=== PATIENT | male | born 1985 | race Caucasian/White ===

== ENCOUNTER 2024-02-12 20:57 | Emergency (ER) | payer OTHER, SELFPAY ==
[2024-02-12 21:00] VITALS: BP 135/98
[2024-02-12 21:57] VITALS: BMI 25.1
--- NOTE | 2024-02-12 22:00 | ED.GENMED ---
History of Present Illness
<SANDY Mcclellan - Last Filed: 02/13/24 04:19>
General
Chief Complaint: Back Pain
Source: patient
Time Seen by Provider: 02/12/24 22:00
Nursing documentation reviewed up to this point in time: agreed with
History of Present Illness
History of Present Illness:
Patient is a 38 year old male presenting to the ED with complaints of lower back pain x 3 weeks. The pain started while he was lifting weights. He was doing a leg press and felt a pop. There is a sharp back pain that is rated a 9/10 and radiates
down his right leg. The pain has been getting worse with time. He went to urgent care 3 weeks ago and they gave him Prednisone and a muscle relaxer which did not help his symptoms. He went again 1 week ago for another dose which did not help.
Yesterday he started getting a tingling sensation in his foot. Pain is worse with movement and better with rest. Something like this has never happened before. Patient denies any bruising changes in urination dysuria sob light headedness.
Patient has been taking Prednisone and a muscle relaxer for the past 3 weeks which have not helped symptoms. He admits to chronic alcohol use. He got 2 xrays of his back at both urgent care visits which came back negative.
Past History
<SANDY Mcclellan - Last Filed: 02/13/24 04:19>
Social History
Tobacco: Non-smoker
Alcohol: Chronic alcoholic
Drug: None
Personal:
Living: with family
Employment: Employed
Family History
Family History: Other (n/c)
Review of Systems
<SANDY Mcclellan - Last Filed: 02/13/24 04:19>
Review of Systems
Allergies reviewed?: Yes
Constitutional: Reports no symptoms
Respiratory: Reports no symptoms
Cardiac: Reports no symptoms
: Reports no symptoms
Musculoskeletal: Reports muscle pain and back pain
Neurological: Reports numbness (tingling in R foot )
Phy Exam
<BrandonSANDY Kaplan - Last Filed: 02/13/24 04:19>
General Physical Exam
General Presentation: mild distress
General age: appears stated age
General Habitus: normal
General Mental: alert
Cardiovascular Exam
Cardiovascular Exam: regular rate/rhythm, no edema, no gallop, no JVD and no murmur
Pulmonary Exam
Pulmonary Exam: lungs clear, no respiratory distress, no rales, chest non tender, no crackles, no rhonchi, no stridor, no wheezing and no cough
Sensory
Sensory Exam: intact (sensation intact in the R leg to light touch)
Musculoskeletal Exam
Musculoskeletal Exam: back pain (sharp back pain to palpation of lumbosacral junction), back tenderness and other (sharp pain down posterior R thigh, tingling sensation in R foot)
Course
<SANDY Mcclellan - Last Filed: 02/13/24 04:19>
Orders/Labs/Results
Orders:
Orders
02/12/24 22:16
CT Lumbar Spine W/o Iv Contras Urgent
Comment:
Reason For Exam: lower back pain radiating to leg
02/12/24 22:24
Urinalysis Reflex To Culture Urgent
Date Specimen was Collected: 02/12/24
Time Specimen was Collected: 22:22
Urine Microscopic Reflex Cult Urgent
02/12/24 22:38
Dexamethasone Pf [Decadron] 10 mg PO NOW STA
Famotidine [Pepcid] 40 mg PO NOW STA
Ketorolac [Toradol] 60 mg IM NOW STA
Abnormal Lab Results
02/12/24
22:24
Urine Ketones Trace A
(Negative)
Leukocyte Esterase Rfl Trace A
(Negative)
Urine Bacteria (Reflex) Few A
(Negative)
Vital Signs
Initial and Last Documented VS:
Initial Vital Signs
Temp Pulse Resp BP Pulse Ox
98.2 F 97 16 135/98 98
02/12/24 21:00 02/12/24 21:00 02/12/24 21:00 02/12/24 21:00 02/12/24 21:00
Last Documented Vital Signs
Temp Pulse Resp BP Pulse Ox
98.2 F 97 16 135/98 98
02/12/24 21:00 02/12/24 21:00 02/12/24 21:00 02/12/24 21:00 02/12/24 21:00
<Saulo Griffith, DO - Last Filed: 02/13/24 00:46>
Orders/Labs/Results
Orders:
Orders
02/12/24 22:16
CT Lumbar Spine W/o Iv Contras Urgent
Comment:
Reason For Exam: lower back pain radiating to leg
02/12/24 22:24
Urinalysis Reflex To Culture Urgent
Date Specimen was Collected: 02/12/24
Time Specimen was Collected: 22:22
Urine Microscopic Reflex Cult Urgent
02/12/24 22:38
Dexamethasone Pf [Decadron] 10 mg PO NOW STA
Famotidine [Pepcid] 40 mg PO NOW STA
Ketorolac [Toradol] 60 mg IM NOW STA
Abnormal Lab Results
02/12/24
22:24
Urine Ketones Trace A
(Negative)
Leukocyte Esterase Rfl Trace A
(Negative)
Urine Bacteria (Reflex) Few A
(Negative)
Vital Signs
Initial and Last Documented VS:
Initial Vital Signs
Temp Pulse Resp BP Pulse Ox
98.2 F 97 16 135/98 98
02/12/24 21:00 02/12/24 21:00 02/12/24 21:00 02/12/24 21:00 02/12/24 21:00
Last Documented Vital Signs
Temp Pulse Resp BP Pulse Ox
98.2 F 97 16 135/98 98
02/12/24 21:00 02/12/24 21:00 02/12/24 21:00 02/12/24 21:00 02/12/24 21:00
<SANDY Mcclellan - Last Filed: 02/13/24 04:19>
MDM/Problems Addressed
Differential Diagnosis Includes:
sciatica, disc herniation, hamstring strain
MDM/Problems Addressed:
Give ice for back, order urine and CT without contrast
<SANDY Mcclellan - Last Filed: 02/13/24 04:19>
*Critical Care Note
Total Time (30-74mins, 75-104mins- exclusive of procedures): Not Applicable
<Saulo Griffith DO - Last Filed: 02/13/24 00:46>
Update Note
Update Note:
CT lumbar spine without contrast
IMPRESSION:
Right L5-S1 subarticular disk protrusion measure approximately 10 mm in AP dimension causing spinal canal narrowing and likely compressing the traversing right S1 nerve root, better evaluated MRI if clinically indicated.
02/13/2024 0036 AM: Discussed CAT scan findings with the patient. At this point we discussed admitting him for pain control but he refused. He does wish to follow-up with orthopedics. I did give him a copy of his CAT scan findings. He does
understand the findings. We did discuss them at length. He will follow-up with orthopedics. He will continue to follow-up with the [facility]. I will prescribe him narcotic pain medication for breakthrough pain.
ED Attending Note
<SANDY Mcclellan - Last Filed: 02/13/24 04:19>
-
Portions of this chart may have been created with voice recognition software.� Occasional wrong word or��sound alike� substitutions may have occurred due to the inherent limitations of voice recognition software.
<Saulo Griffith, DO - Last Filed: 02/13/24 00:46>
ED Attending Note
Patient seen and examined by attending physician: Yes
I performed the substantive portion of visit, reviewed & personally made and approve the management plan that is documented in note by myself or ANISA.: Yes
ED Attending Note:
This a pleasant 38-year-old disabled who presents with lower back pain that has been present for the last 3 weeks. Patient states that he was lifting weights and felt a pop in his low back. He was seen by urgent care and had an x-ray. He
was given prednisone and a muscle relaxant which helped his symptoms slightly. He returned to the urgent care and again had minimal relief from the symptoms. He reports getting paresthesias in his foot beginning yesterday so he decided to come in
to the emergency department. He states that his symptoms are exacerbated by movement and relieved with rest. Patient denies bowel or bladder retention or incontinence. He denies perianal anesthesia. He is able to walk. [facility] He also has a virtual physical therapy scheduled for February 19. Patient denies fever, chills, nausea or vomiting. Patient is a former alcoholic but has been clean for 8 and half months. Patient has tried a TENS unit, a
pressure-point device, both of which have not worked. Patient was seen in conjunction with the PA student. I have reviewed and agree with the history and treatment plan presented. On my independent physical exam, patient is awake, alert, and
oriented x3, moderate acute distress. Heart is regular rate and rhythm. Lungs clear to auscultation bilaterally without wheezes rales or rhonchi present. Positive straight leg raising test on the right. Sensation intact.
Discharge Plan
Departure
Patient Disposition: Home (Routine Discharge)
Date of Disposition: 02/13/24
Time of Disposition: 00:37
Patient with high blood pressure during this ER visit?: Yes
Condition: Good
Discharge Problem:
Herniated intervertebral disc of lumbar spine
Instructions: Sciatica (DC), Degenerative Disc Disease ED
Prescriptions:
New
oxycodone-acetaminophen [Percocet] 5-325 mg tablet
1 tab PO Q6HPRN PRN (Reason: pain) Qty: 10 0RF
No Action
thiamine HCl (vitamin B1) 100 MG tablet
100 mg PO DAILY Qty: 60 0RF
pantoprazole [Protonix] 40 mg tablet,delayed release (DR/EC)
40 mg PO DAILY Qty: 14 0RF
ondansetron 4 mg tablet,disintegrating
4 mg PO QID PRN (Reason: nausea and vomiting) Qty: 20 0RF
Referrals:
[facility] [Provider Group]
Bobbi Hoyos MD [Family Provider] -
Activity Restrictions/Additional Instructions:
Your prescriptions were sent electronically to the 24-hour [facility] pharmacy that you specified
[facility] [place]
It was a pleasure meeting you and taking part in your care. We hope for your continued healing and wellness.
Please read discharge instructions in their entirety. However, they are for general education and may not describe your exact diagnosis at discharge. Information on your ER visit and medical conditions were discussed with you along with appropriate
follow up information...
If indicated, please take your medications as instructed and indicated on discharge paperwork.
Please schedule a follow up appointment as directed. Call to schedule an appointment
Please return to the emergency department with ANY change in, persisting, or worsening of symptoms. If any of your symptoms do not improve, or persist, or become more severe within 6-12 hours, please return to the emergency department for further
care.
Please return to the emergency department if you develop a headache, neck pain/stiffness, fever greater than 100.4F, chest pain, shortness of breath, persistent nausea, vomiting, slurred speech, difficulty walking, numbness/tingling, weakness, signs
of infection or any other symptoms that are worrisome to you.
If you have any questions or concerns please do not hesitate to call the Hospital at or E-mail me directly at [email or web address]
Interventions
Interventions:
*Risk Screen - Suicide Last Done: 02/12/24 21:00
*General Assessment Last Done: 02/12/24 21:57
*Neglect/Abuse Screening Last Done: 02/12/24 21:57
ED- Fall Risk Assessment Last Done: 02/12/24 21:57
*ED COVID-19 Vaccine History Last Done: 02/12/24 21:57
*Nursing Disposition Last Done: 02/13/24 00:57
ED-Musculoskeletal Assessment Last Done: 02/12/24 21:57
Discharge Date and Time
Discharge Date/Time: 02/13/24 01:04
Print Language: SERBIAN
[2024-02-12 22:33] LABS: Urine Albumin Negative (Neg - Trace); Urine Bilirubin Negative (Negative); Urine Character Clear (Clear); Urine Color Yellow; Urine Glucose Negative (Negative); Urine Ketone Trace (Negative); Urine Leukocyte Trace (Negative); Urine Nitrite Negative (Negative); Urine Occult Blood Negative (Negative); Urine Urobilinogen Negative (Neg - 1+)
[2024-02-12 22:39] LABS: Urine Bacteria Few (Negative); Urine Red Blood Cell 0-2 /HPF (0-2); Urine White Cell 0-2 /HPF (0-5)
[2024-02-12] MEDS: PEPCID 40 MG PO (22:53)
[2024-02-12] MEDS: DECADRON 10 MG PO (22:53)
[2024-02-12] MEDS: TORADOL 60 MG IM (22:54)
== END 2024-02-13 01:04 | disposition home or self-care (01) ==
LOC: EMR 20:57
PROVIDERS: EMERGENCY PHYSICIAN Student in an Organized Health Care Education/Training Program; FAMILY PHYSICIAN Internal Medicine
DX: M51.26 Other intervertebral disc displacement, lumbar region (principal); F10.21 Alcohol dependence, in remission
CPT/HCPCS: 99284; 96372; 72131; 81003; 81015

== ENCOUNTER 2024-08-03 22:42 | Inpatient (IN) | payer OTHER, SELFPAY ==
[2024-08-03] VITALS (8 sets, daily range): BP systolic 115–133; BP diastolic 85–104
[2024-08-03 19:27] LABS: % Basophils 0.8 % (0-2); % Eosinophils 0.2 % (0-6); % Immature Granulocytes 0.4 % (0-0.5); % Lymphocytes 39.2 % (20.5-51.1); % Monocytes 4.6 % (1.7-9.3); % Neutrophils 54.8 % (42.2-75.2); Absolute Basophils 0.1 10^3/uL (0-0.2); Absolute Monocytes 0.5 10^3/uL (0.1-0.6); Absolute Neutrophils 5.6 10^3/uL (1.4-6.5); Hematocrit 42.9 % (39.0-52.0); Hemoglobin 15.7 g/dL (13.0-18.0); Mean Corp Hgb Conc. 36.6 g/dL (33.0-37.0); Mean Corpuscular Hgb 33.3 pg (27.0-31.0); Mean Corpuscular Volume 91.1 fL (80.0-94.0); Mean Platelet Volume 9.7 fL (7.4-10.4); Nucleated Red Blood Cells % 0.2 % (-); Platelet Count 443 10^3/uL (130-400); Red Blood Cell Count 4.71 10^6/uL (4.70-6.10); Red Cell Dist. Width 14.2 % (11.5-14.5); White Blood Cell Count 10.2 10^3/uL (4.8-10.8)
[2024-08-03 19:37] LABS: ALT (SGPT) 73 U/L (0-50); AST (SGOT) 91 U/L (17-59); Albumin 4.4 g/dl (3.5-5.0); Alkaline Phosphatase 137 U/L (38-126); Blood Urea Nitrogen 18 mg/dl (9-20); Calcium 9.7 mg/dl (8.4-10.2); Carbon Dioxide 27 mmol/L (22-30); Chloride 93 mmol/L (98-107); Estimated Creatinine Clearance > 125 ml/min; Glucose 176 mg/dl (70-99); Sodium 138 mmol/L (135-145); Total Bilirubin 1.1 mg/dl (0.2-1.3); Total Protein 6.6 g/dl (6.3-8.2); eGFR > 60.00
[2024-08-03] MEDS: ATIVAN 1 MG IV (19:49)
[2024-08-03] MEDS: NSS 1000 IV (19:50)
[2024-08-03] MEDS: PROTONIX IV 80 MG IV (19:50)
[2024-08-03] MEDS: ZOFRAN 4 MG IV (19:50)
[2024-08-03] MEDS: MULTIVITAMIN 1011 ML IV (20:03)
[2024-08-03] MEDS: MULTIVITAMIN 1011 MG IV (20:03)
[2024-08-03 20:07] LABS: Alcohol 331 mg/dl; Lipase 258 U/L (23-300)
--- NOTE | 2024-08-03 20:55 | ED.GENMED ---
History of Present Illness
General
Chief Complaint: Abdominal Symptoms
Source: patient
Exam Limitations: none
Time Seen by Provider: 08/03/24 19:30
History of Present Illness
History of Present Illness:
39-year-old male with a history of alcohol use. Drank half a pint this morning. Episodes of nausea vomiting. Progressive over a month. Possibly some blood in his vomit. Also complaining of some epigastric pain. Not currently taking Tylenol.
Stopped a week ago.
Past History
Past History
ED Past Medical History: Other (Alcohol abuse/posttraumatic stress disorder)
ED Past Surgical History: Other (LASEK eye surgery)
Social History
Tobacco: Non-smoker
Alcohol: Chronic alcoholic
Drug: None
Personal:
Living: with family
Employment: Employed
Family History
Family History: Other (n/c)
Review of Systems
Review of Systems
All Other Systems: Not applicable
Constitutional: Denies fever
Respiratory: Reports no symptoms
Cardiac: Denies chest pain or syncope
Phy Exam
Physical Exam
Physical Exam:
GENERAL: Alert and oriented. Anxious. Jittery.
EYE: Orbits normal.
NECK: Supple, no significant adenopathy.
ENT: Pharynx without erythema
CARDIAC: Tachycardic and regular no murmur
Lungs: Mildly tachypneic and mild hyperventilation. Clear
ABDOMEN: Soft, mild epigastric tenderness no rebound or guarding no mass or hernia. Stool is brown but test trace positive
NEUROLOGICAL: Alert and oriented , grossly non-focal
SKIN: Warm and dry, no rash or lesion, no discoloration, skin intact.
MUSCULOSKELETAL: No edema,no deformity.Good color
PSYCH: Normal and appropriate interaction. Anxious. Jittery.
Course
Orders/Labs/Results
Orders:
Orders
08/03/24 19:04
EKG [Electrocardiogram (*1)] Urgent
Reason for Study: Tachycardia
08/03/24 19:05
EKG- Treatment ONCE
08/03/24 19:11
Alcohol Urgent
CMP [Comprehensive Metabolic Panel] Urgent
Complete Blood Count/With Diff Urgent
Lipase Urgent
Comment: ADD ON
08/03/24 19:39
Add On- LAB Urgent
Tests Added?: lipase
Electrocardiogram (*1) Stat
Reason for Study: Other
Other Reason for Exam: GI Bleed
Cardiac Monitoring- Treatment ONCE
EKG- Treatment ONCE
IV Insert/Care/Rem.- Treatment PRN
Lorazepam [Ativan] 1 mg IV NOW STA
Ondansetron Injectable [Zofran] 4 mg IV NOW STA
Pantoprazole [Protonix IV] 80 mg IV NOW STA
Pulse Ox/cont/shift [RESP] Stat
Quantity: 1
08/03/24 19:40
0.9% Sodium Chloride 1000 ml [Nss] 1,000 ml IV BOLUS
08/03/24 19:41
Add On- LAB Urgent
Tests Added?: alcohol
08/03/24 19:45
Type+Screen Urgent
08/03/24 20:00
0.9% Sodium Chloride 1000 ml [Nss] 1,000 ml Mvi, Adult [Multivitamin] 10 ml Thiamine Injection 100 mg IV Wide Open mls/hr
08/03/24 20:09
Crisis Consult Urgent
Reason for Consult: depression, ptsd
08/03/24 21:07
ABO2 Urgent
BBK Wristband Number:
Associate notified that ABO2 has been ordered: [id number]
Date: 08/03/24
Time: 20:09
Medical Collector ID: [id number]
Abnormal Lab Results
08/03/24
19:11
MCH 33.3 H pg
(27.0-31.0)
Plt Count 443 H 10^3/uL
(130-400)
Absolute Lymphs (auto) 4.0 H 10^3/uL
(1.2-3.4)
Chloride 93 L mmol/L
(98-107)
Glucose 176 H mg/dl
(70-99)
AST 91 H U/L
(17-59)
ALT 73 H U/L
(0-50)
Alkaline Phosphatase 137 H U/L
(38-126)
08/03/24 19:11
08/03/24 19:11
Vital Signs
Initial and Last Documented VS:
Initial Vital Signs
Temp Pulse Resp BP Pulse Ox
98.0 F 115 22 127/90 99
08/03/24 18:59 08/03/24 18:59 08/03/24 18:59 08/03/24 18:59 08/03/24 18:59
Last Documented Vital Signs
Temp Pulse Resp BP Pulse Ox
98.0 F 116 18 120/104 95
08/03/24 18:59 08/03/24 20:45 08/03/24 20:45 08/03/24 20:00 08/03/24 20:15
*Critical Care Note
Total Time (30-74mins, 75-104mins- exclusive of procedures): Not Applicable
Update Note
Update Note:
Patient appears slightly improved but remains tachycardic. With report of hematemesis. Trace positive stool, likely alcoholic gastritis and withdrawal. Admit for further care
ED Attending Note
-
Portions of this chart may have been created with voice recognition software.� Occasional wrong word or��sound alike� substitutions may have occurred due to the inherent limitations of voice recognition software.
Discharge Plan
Departure
Patient Disposition: Admit
Date of Disposition: 08/03/24
Time of Disposition: 20:55
Presentation/result/management discussed w/ accepting MD/DO: Hospitalist
Discharge Problem:
Alcohol gastritis/withdrawal
Referrals:
NONE,* [Family Provider] -
Interventions
Interventions:
*Risk Screen - Suicide Last Done: 08/03/24 18:59
*General Assessment Last Done: 08/03/24 18:59
*Neglect/Abuse Screening Last Done: 08/03/24 18:59
*ED- Fall Risk Assessment Last Done: 08/03/24 19:06
*ED COVID-19 Vaccine History Last Done: 08/03/24 19:06
OA-Dlmctg-Fievprndov Assessment Last Done: 08/03/24 19:39
Discharge Date and Time
Print Language: UKRAINIAN
--- NOTE | 2024-08-03 21:48 | HPS.HSE ---
Family Physician
-
Family Physician: * NONE
Chief Complaint
-
back pain
History of Present Illness
Patient is a 39-year-old male with past medical history of PTSD, depression, chronic back pain and ETOH dependency who presented to [facility] ED for evaluation of back pain and potential ETOH withdraw. Patient reports drinking 1/2 of a 5th
of Vodka today with a 'handful of Tylenol,' does not recall when last drink was and can not quantify the amount of Tylenol ingested. He reports he was 10 months sober before starting to drink again around 2023, following a back injury to
L5-S1. He states he has chronic back pain in that area as well as the right sciatic nerve. He reports being hospitalized at the [place] with alcohol withdraw for tremors, diaphoresis, vomiting and diarrhea. He denies hallucinations, or need for
intubation. He reports wanting to be sober again.
Medical History
Past Medical History
Past Medical History: Reports Other
Additional Past Medical History:
PTSD
depression
chronic back pain
ETOH dependency
Past Surgical History: Reports Other
Additional Past Surgical History:
Lasik bilateral eyes
Social History
Tobacco: Smoker (cigarettes and vapes, does not quantify )
Alcohol: Daily (today reports half of a 5th of vodka )
Drug: None
Personal:
Living: With Family
Employment: Disabled
Family History
Family History: Not pertinent
Allergies / Home Medications
Allergies reflects when Allergies were last updated in [employer].
Home Medications with original date entered in [employer]
Allergy/Medication List:
Allergies
Allergy/AdvReac Type Severity Reaction Status Date / Time
No Known Allergies Allergy Verified 08/03/24 19:07
Home Medications
acetaminophen 500 mg tablet 1,000 mg PO Q8H PRN pain 08/03/24
bupropion HCl 150 mg 24 hr tablet, extended release 150 mg PO DAILY 08/03/24
duloxetine 30 mg capsule,delayed release 60 mg PO HS 08/03/24
gabapentin 600 mg tablet 600 mg PO TID 08/03/24
hydroxyzine HCl 50 mg tablet 50 mg PO TID PRN anxiety 08/03/24
lidocaine 5 % topical patch 2 patch topical DAILY Pain 08/03/24
naloxone 8 mg/actuation nasal spray 1 spray intranasal Q3M PRN opioid overdose 08/03/24
nicotine 21 mg/24 hr daily transdermal patch 1 patch transdermal DAILY 08/03/24
oxycodone 5 mg tablet 10 mg PO Q6H PRN severe pain 08/03/24
polyethylene glycol 3350 17 gram oral powder packet (Miralax) 17 g PO BID PRN constipation 08/03/24
prazosin 1 mg capsule 3 mg PO HS 08/03/24
sennosides 8.6 mg tablet 8.6 mg PO BID 08/03/24
trazodone 100 mg tablet 100 mg PO HS Sleep 08/03/24
Review of Systems
-
History Source: Patient
Constitutional: Reports Sleep Disturbance
EENT: Reports No Symptoms
Respiratory: Reports No Symptoms
Cardiac: Reports No Symptoms
Abdomen/GI: Reports Nausea, Vomiting and Diarrhea
: Reports No Symptoms
Musculoskeletal: Reports Other (back pain )
Skin: Reports No Symptoms
Neurological: Reports No Symptoms
Endocrine: Reports No Symptoms
Hematologic/Lymphatic: Reports No Symptoms
Psych: Reports No Symptoms
Physical Exam
Vital Signs
Vital Signs
Temp Pulse Resp BP Pulse Ox
98.0 F 116 18 120/104 95
08/03/24 18:59 08/03/24 20:45 08/03/24 20:45 08/03/24 20:00 08/03/24 20:15
Physical Exam
General: Well Developed, Well Nourished and Chills
HEENT: NormoCephalic, Moist mucous membranes, Atraumatic, [place] Conjunctivae, Nose Appears Normal and Ears Appear Normal
Respiratory: Clear and Non Labored Respirations
Cardiac: S1/S2, Regular Rhythm and Tachycardia; No Murmur, Rub or Gallop
Breast: Deferred by me
GI: Soft, Non Tender, Non Distended and Normal Bowel Sounds; No Organomegaly
Rectal: Deferred by Provider
Genito-urinary: Deferred by me
Musculoskeletal: No Clubbing, No Cyanosis and No Edema
Skin: Warm and IV/Catheter Site; No Rash
Neuro: Awake, Alert, AO x 3 and Nonfocal/grossly intact
Psych: Calm
Laboratory Results
-
08/03/24 19:11
08/03/24 19:11
Laboratory Results
Total Bilirubin 1.1 mg/dl (0.2-1.3) 08/03/24 19:11
AST 91 U/L (17-59) H 08/03/24 19:11
ALT 73 U/L (0-50) H 08/03/24 19:11
Alkaline Phosphatase 137 U/L (38-126) H 08/03/24 19:11
Lipase 258 U/L (23-300) 08/03/24 19:11
Data Reviewed
-
Medical Tests (Nuc Med, Echo, EKG etc): Report Reviewed by me (EKG: SINUS TACHYCARDIA)
Lab Data: Labs Reviewed by me (AST 91, ALT 73, Alk phos 137, ETOH 331)
Impression/Plan
-
IMPRESSION/PLAN:
#Transaminitis likely 2/2 ETOH intoxication
#ETOH withdraw with high risk for progression
#Hx ETOH withdraw
AST 91, ALT 73, Alk phos 137, ETOH 331
acetaminophen level: pending
reports drink 1/2 of a 5th of vodka today
reports previous withdraw with hospitalization
reports ingesting handful of Tylenol
- Admit to IMU
- MSAS protocol
- supportive care
#ETOH gastritis
- T & S
- IV Protonix daily
- monitor H/H
#PTSD
#depression
- continue bupropion, duloxetine, hydroxyzine, prazosin and trazodone
#chronic back pain
- continue gabapentin, lidocaine patch and oxycodone
Code status: full code
DVT prophylaxis: SCDs
--- NOTE | 2024-08-03 21:59 | W.PN.UPDATE ---
Update Note
Progress Note Update
This note serves as an addendum to the H&P by automotive generator repairer ANISA
Deneen Tate
HPI
39M HX ETOH use disorder, HX PTSD sen at ER;
- report half a pint of ETOH
- had nausea vomiting - possibly some blood in his vomit
- some epigastric pain.
- Not currently taking Tylenol. Stopped a week ago.
PHX: see above
Reviewed VS:
VS
08/03/24
18:59 08/03/24
19:01 08/03/24
19:16
Temp 98.0 F
Pulse 115 120
Resp Rate 22
Blood pressure 127/90 127/90
SaO2 99
Oxygen Mode of Delivery Room air
PE
Gen: anxious , Jittery
HEENT:
Neck:
Lungs: tachypneic and mild hyperventilation.
Cor: Tachycardic
Abdomen: soft
ALUMINUM POURER: see below
MS: no edema
Psych: interactive appropriately
CIWA score
N/V - mild - 2
Visible Tremors - 2
Paroxysmal l sweats - 0
Anxiety; 2 for moderate
Agitation - 0
tactile Hallucination ; 0
Auditory Hallucination - 0
Visual Hallucination- 0
COSTA - 0
ORIENTATION AND CLOUDING OF SENSORIUM: 0
CIWA 6 - very mild WD but ETOH level still 331
08/03/24
19:11
WBC 10.2
Hgb 15.7
Creatinine 0.7
eGFR > 60.00
Glucose 176 H
AST 91 H
ALT 73 H
Alkaline Phosphatase 137 H
Lipase 258
Alcohol, Quantitative 331
EKG
SINUS TACHYCARDIA
OTHERWISE NORMAL ECG
NO PREVIOUS ECGS AVAILABLE
ASSESSMENT & PLAN
Acute ETOH intoxication: ETOH 331 s/p a fifth Vodka sometime in the morning
Acute ETOH WDS with hi risk for progression
Current CIWA score 6 but ETOH level 33
HX ETOH WDS
- Start ETOH WD protocol moderate BZD dose
- IVF
- Psych consult
ETOH Gastritis
- T & S
- IV PPI daily
- Trend Hgb
Transaminitis suspect - Acute ETOH hepatitis
- check acetaminophen level
- Stop ETOH
- trend LFTs in AM
HX PTST/ depression
- c/w [employer] Bupropion, Duloxetine HS, trazodone HS Gabapentin , Oxycodone PRN
DVT Px: SCD
Full code
IMU
[2024-08-03 23:04] LABS: Acetaminophen < 10 ug/ml (10-30)
[2024-08-04] VITALS (13 sets, daily range): BP systolic 119–145; BP diastolic 72–99; BMI 26.1
[2024-08-04] MEDS: NSS 1000 IV ×3 (00:07→20:08)
[2024-08-04] MEDS: ZOFRAN 4 MG IV ×2 (00:11→06:18)
[2024-08-04] MEDS: THIAMINE INJECTION 200 MG IV ×4 (00:11→23:14)
[2024-08-04] MEDS: ATIVAN 1 MG PO ×3 (00:20→22:19)
[2024-08-04] MEDS: ROXICODONE 10 MG PO (00:34)
[2024-08-04 00:40] LABS: INR 1.15
[2024-08-04 00:41] LABS: APTT 26.6 Sec (23.4-35.0)
[2024-08-04 00:46] LABS: Alcohol 223 mg/dl; GGTP 716 U/L (15-73); Magnesium 1.6 mg/dl (1.6-2.3); Phosphorus 3.7 mg/dl (2.5-4.5)
--- NOTE | 2024-08-04 00:47 | PTCARENOTE ---
Rec'd pt from ED RN. Pt AAOx3, c/o feeling lousy. C/o severe 10/10 back pain, nausea without vomiting. HR elevated. MSAS as documented. Medication provided per JUL. Pt oriented to call gibbs and safety measures. Care ongoing.
[2024-08-04 00:52] LABS: B-Hydroxybutyrate 0.09 mmol/L (0.02-0.27)
[2024-08-04] MEDS: NSS (PRESERVATIVE FREE) 0.5 ML IV (02:10)
[2024-08-04] MEDS: ATIVAN 1 MG IV ×2 (02:10→14:49)
--- NOTE | 2024-08-04 04:45 | PTCARENOTE ---
Pt desats as low as 70% while sleeping. States hx of sleep apnea. Reports wearing a mask HS at baseline, but states he 'pulls it off throughout the night'. 2L O2 placed.
--- NOTE | 2024-08-04 04:49 | DOWNTIME ---
There was a [employer] Downtime on 08/04/2024 from 0100 to 08/05/2023 at 0420 . Downtime documentation of patient's care, including medication administrations, has been reconciled in the electronic record per guidelines. Refer to the
patient's paper chart under the miscellaneous tab to see printed paper medication records and downtime forms.
[2024-08-04] MEDS: ATIVAN 2 MG IV (07:05)
[2024-08-04] MEDS: NICODERM TRANSDERMAL 21 MG TRANSDERM (07:12)
--- NOTE | 2024-08-04 07:47 | PTCARENOTE ---
pts MSAS 12 at change of shift. see worklist. 2 mg ativan given
--- NOTE | 2024-08-04 08:17 | W.PN.HOSP.TC ---
Today's Communication/Plan
-
MSAS
Assessment / Plan
Assessment / Plan
Mr. Augustin Loredo is a 39 yo man with hx PTSD, depression, chronic pain (sciatica) and alcohol use presents to the ER with lower back pain and symptoms of withdrawal.
Alcohol Abuse Disorder
Alcohol Withdrawal
-monitor on telemetry
-IVF
-thiamine/folate
-MSAS
Reported use of excessive tylenol
-tylenol level < 10
Transaminitis
-normal T. Bili and INR
-2/2 alcohol us
Gastritis
-IV PPI daily
PTSD
Depression
- c/w PATIENT ACCESS Bupropion, Duloxetine HS, trazodone HS
Chronic Pain
Sciatica
-Gabapentin , Oxycodone PRN
DVT PPx SCD
Anticipated Discharge: 24 - 48 hours
Subjective/Interval History
-
Date of Service: August 04, 2024
seen post receiving 2mg Ativan
was more tremulous earlier
currently patient sedated, states he has lower back pain
Objective Data
-
Labs:
Laboratory Results
08/04/24
00:25
PT 15.0 H
INR 1.15
APTT 26.6
Vital Signs:
Vital Signs
Temp Pulse Resp BP Pulse Ox
98.4 F 104 20 119/72 94
08/04/24 06:36 08/04/24 06:00 08/04/24 06:00 08/04/24 06:00 08/04/24 06:00
I&O
08/03/24 08/04/24 08/05/24
06:59 06:59 06:59
Intake Total 600 / 600
Balance 600 / 600
Review of Systems
-
History Source: Patient
All other systems: Reviewed and negative
Physical Exam
-
General: Other (disheveled appearing)
HEENT: PERRLA
Respiratory: Clear to Auscultation; Negative Wheezes
Cardiac: Regular Rhythm and S1/S2
GI: Soft and Nontender
Musculoskeletal: No Edema
Skin: Warm and Dry; Negative Rash
Neuro: Awake and Alert
Psych: Calm
Data Reviewed
-
Diagnostic Radiology: Report Reviewed by me
Labs: Labs Reviewed by me
[2024-08-04] MEDS: NEURONTIN 600 MG PO (08:29)
[2024-08-04] MEDS: WELLBUTRIN XL (24 hour extended release) 150 MG PO (08:29)
[2024-08-04] MEDS: PROTONIX IV 40 MG IV ×3 (08:30→20:10)
[2024-08-04] MEDS: FOLVITE 1 MG PO (08:31)
[2024-08-04] MEDS: LIDOCAINE 4% PATCH 2 PATCH TOPICAL (08:32)
[2024-08-04] MEDS: NSS (PRESERVATIVE FREE) 10 ML IV ×2 (08:32→20:10)
[2024-08-04] MEDS: SENOKOT PO ×2 (08:37→20:59)
--- NOTE | 2024-08-04 11:26 | W.PN.UPDATE ---
Update Note
Progress Note Update
I spoke to patient's psychiatrist, Dr. Najera, who let me know that at discharge from last admission (at [facility] from 07/12-07/23) patient was prescribed Duloxetine 60 BID and Gabapentin 1200 TID.
Will increase Duloxetine back to BID dosing; start with Gabapentin 900 TID for now
[2024-08-04 13:34] LABS: INR 1.05; PT 14.2 Sec (11.4-14.6)
[2024-08-04 13:40] LABS: ALT (SGPT) 61 U/L (0-50); AST (SGOT) 77 U/L (17-59); Albumin 3.5 g/dl (3.5-5.0); Alkaline Phosphatase 110 U/L (38-126); Blood Urea Nitrogen 17 mg/dl (9-20); Calcium 8.4 mg/dl (8.4-10.2); Carbon Dioxide 25 mmol/L (22-30); Chloride 98 mmol/L (98-107); Estimated Creatinine Clearance > 125 ml/min; Glucose 110 mg/dl (70-99); Potassium 3.9 mmol/L (3.5-5.1); Sodium 132 mmol/L (135-145); Total Bilirubin 1.7 mg/dl (0.2-1.3); Total Protein 5.7 g/dl (6.3-8.2); eGFR > 60.00
[2024-08-04] MEDS: NEURONTIN 900 MG PO ×2 (15:33→21:00)
--- NOTE | 2024-08-04 15:41 | CM ---
CM met with pt bedside
Pt is a and currently receiving disability
Has VA insurance
He is independent with his ADLs, no DMEs
He has a cpap at home which he doesn't utilize
Pt receives all his medical care at the OR
PCP- name unknown, [facility] blue team
Rx- [facility]
CM consulted for D/A
Pt in agreement with DOLLY referral
Referral made to Rom/DOLLY
He will complete bedside visit tomorrow
Update to spouse per pt request
Pt has been to detox/inpt tx 7x
[facility] for [facility]
Discharge Disposition- inpt D/A
[2024-08-04] MEDS: CYMBALTA DELAYED RELEASE 60 MG PO (20:58)
[2024-08-04] MEDS: MINIPRESS 3 MG PO (21:00)
[2024-08-04] MEDS: DESYREL 100 MG PO (21:00)
[2024-08-05] VITALS (12 sets, daily range): BP systolic 122–140; BP diastolic 69–99; PULSE 116
--- NOTE | 2024-08-05 02:33 | PTCARENOTE ---
Pt oriented, cooperative. C/o loose stools with urgency, refused scheduled senna. MSAS as documented, see MAR. 2L O2 in place, VSS. Call gibbs within reach.
[2024-08-05 05:14] LABS: ALT (SGPT) 52 U/L (0-50); AST (SGOT) 76 U/L (17-59); Albumin 2.9 g/dl (3.5-5.0); Alkaline Phosphatase 104 U/L (38-126); Blood Urea Nitrogen 9 mg/dl (9-20); Calcium 8.5 mg/dl (8.4-10.2); Carbon Dioxide 25 mmol/L (22-30); Chloride 103 mmol/L (98-107); Estimated Creatinine Clearance > 125 ml/min; Glucose 116 mg/dl (70-99); Potassium 3.3 mmol/L (3.5-5.1); Sodium 134 mmol/L (135-145); Total Bilirubin 1.3 mg/dl (0.2-1.3); eGFR > 60.00
[2024-08-05 05:17] LABS: INR 1.03
[2024-08-05 05:53] LABS: Hematocrit 29.1 % (39.0-52.0); Hemoglobin 10.8 g/dL (13.0-18.0); Mean Corp Hgb Conc. 37.1 g/dL (33.0-37.0); Mean Corpuscular Hgb 34.7 pg (27.0-31.0); Mean Corpuscular Volume 93.6 fL (80.0-94.0); Mean Platelet Volume 10.2 fL (7.4-10.4); Platelet Count 186 10^3/uL (130-400); Red Blood Cell Count 3.11 10^6/uL (4.70-6.10); White Blood Cell Count 5.6 10^3/uL (4.8-10.8)
[2024-08-05] MEDS: ROXICODONE 10 MG PO ×3 (06:17→19:54)
[2024-08-05 06:23] LABS: Hemoglobin 10.6 g/dL (13.0-18.0); Mean Corp Hgb Conc. 36.6 g/dL (33.0-37.0); Mean Corpuscular Hgb 34.6 pg (27.0-31.0); Mean Corpuscular Volume 94.8 fL (80.0-94.0); Mean Platelet Volume 10.1 fL (7.4-10.4); Platelet Count 173 10^3/uL (130-400); Red Blood Cell Count 3.06 10^6/uL (4.70-6.10); Red Cell Dist. Width 14.1 % (11.5-14.5); White Blood Cell Count 5.4 10^3/uL (4.8-10.8)
--- NOTE | 2024-08-05 07:08 | W.PN.UPDATE ---
Update Note
Progress Note Update
AM labs: Hgb 10.8, previously 15.7. Repeated AM labs, Hgb 10.6.�
Vital signs stable: BP 130/70, HR 115, Resp 15, 95% on room air, Temp 98.2.
Patient examined, denies any pain: abdomen soft, distended (Pt states this is his normal abdomen), no signs of bruising t/o abdomen or t/o back. Patient denies any bleeding.��Ordered hemetest stools, serial H&H Q8H.�
Consider GI consult.
[2024-08-05 08:07] LABS: Iron 214 ug/dl (49-181)
[2024-08-05 08:16] LABS: Percent Saturation 90 % (20-50); Total Iron Binding Capacity 237 ug/dl (261-462)
--- NOTE | 2024-08-05 08:24 | W.PN.HOSP.TC ---
Today's Communication/Plan
-
see plan
Assessment / Plan
Assessment / Plan
Mr. Augustin Loredo is a 39 yo man with hx PTSD, depression, chronic pain (sciatica) and alcohol use presents to the ER with lower back pain and symptoms of withdrawal. [facility].
Patient is offered spinal surgery but because of pain he continues to drink. He cannot undergo surgery until a period of sobriety.
Alcohol Abuse Disorder
Alcohol Withdrawal
-monitor on telemetry
-OK to stop IVF
-thiamine/folate
-MSAS
-improving
L5 S1 disc Herniation
Sciatia
-Gabapentin 900 TID
-trial of Baclofen
-Lidocaine patch
-oxycodone PRN
-consult PT and Physiatry
Reported use of excessive tylenol pre last admission
-tylenol level < 10
Transaminitis
-normal T. Bili and INR
-2/2 alcohol use
Gastritis
-IV PPI daily
PTSD
Depression
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
-patient's psychiatrist aware of admission
DVT PPx SCD given drop in Hg
FULL CODE
51 minutes spent on patient care
Anticipated Discharge: 24 - 48 hours
Subjective/Interval History
-
Date of Service: August 05, 2024
feeling better today
hungry and wants to eat
no black or bloody stools
Objective Data
-
Labs:
Laboratory Results
08/05/24 08/05/24 08/05/24
04:41 06:15 12:00
WBC 5.6 5.4
Hgb 10.8 L D 10.6 L Pending
Hct 29.1 L 29.0 L Pending
Plt Count 186 D 173
PT 14.0
INR 1.03
Sodium 134 L
Potassium 3.3 L
Chloride 103
Carbon Dioxide 25
BUN 9
Creatinine 0.6 L
Glucose 116 H
Calcium 8.5
Total Bilirubin 1.3
AST 76 H
ALT 52 H
Alkaline Phosphatase 104
08/05/24
20:00
WBC
Hgb Pending
Hct Pending
Plt Count
PT
INR
Sodium
Potassium
Chloride
Carbon Dioxide
BUN
Creatinine
Glucose
Calcium
Total Bilirubin
AST
ALT
Alkaline Phosphatase
Vital Signs:
Vital Signs
Temp Pulse Resp BP Pulse Ox
98.2 F 115 15 130/70 95
08/05/24 04:47 08/05/24 06:00 08/05/24 06:00 08/05/24 06:00 08/05/24 06:00
I&O
08/04/24 08/05/24 08/06/24
06:59 06:59 06:59
Intake Total 600 / 600 1340 / 1340
Balance 600 / 600 1340 / 1340
Review of Systems
-
History Source: Patient
All other systems: Reviewed and negative
Physical Exam
-
General: No Apparent Distress
HEENT: PERRLA
Respiratory: Clear to Auscultation; Negative Wheezes
Cardiac: Regular Rhythm and S1/S2
GI: Soft and Nontender
Musculoskeletal: No Edema
Skin: Warm and Dry; Negative Rash
Neuro: Awake, Alert and AO x 3
Psych: Calm
Data Reviewed
-
Diagnostic Radiology: Report Reviewed by me
Labs: Labs Reviewed by me
[2024-08-05] MEDS: NSS IV (09:43)
[2024-08-05] MEDS: NSS (PRESERVATIVE FREE) 10 ML IV ×2 (09:44→19:56)
[2024-08-05] MEDS: THIAMINE INJECTION 200 MG IV ×3 (09:44→23:51)
[2024-08-05] MEDS: LIORESAL 10 MG PO ×3 (09:44→22:19)
[2024-08-05] MEDS: NEURONTIN 900 MG PO ×3 (09:44→22:18)
[2024-08-05] MEDS: PROTONIX IV 40 MG IV ×2 (09:44→19:56)
[2024-08-05] MEDS: SENOKOT 8.6 MG PO ×2 (09:45→19:55)
[2024-08-05] MEDS: CYMBALTA DELAYED RELEASE 60 MG PO ×2 (09:45→19:55)
[2024-08-05] MEDS: WELLBUTRIN XL (24 hour extended release) 150 MG PO (09:45)
[2024-08-05] MEDS: FOLVITE 1 MG PO (09:45)
[2024-08-05] MEDS: NICODERM TRANSDERMAL 21 MG TRANSDERM (09:46)
[2024-08-05] MEDS: LIDOCAINE 4% PATCH TOPICAL (11:14)
--- NOTE | 2024-08-05 11:39 | CON.MD ---
Consultation - Medical
-
Referring Provider:�Dr. Alisa Charles
Chief Complaint:�Low back pain
�
History of Present Illness:�39-year-old male with PMH (as below) presented to [facility] on 08/03/2024 with back pain and potential alcohol withdrawal. He has a history of alcohol dependency but was sober for 10 months prior to a back
injury with an L5-S1 injury around Labor Day with right sciatic nerve pain. He has been admitted to the [facility] with alcohol withdrawal before. Currently being treated for alcohol withdrawal. Found to have transaminitis thought secondary to
alcohol intoxication. Also with alcohol gastritis placed on Protonix.
�
Past Medical History:�PTSD, depression, chronic back pain, alcohol dependency
Procedure History:�Bilateral eye LASEK surgery
Family History:�None pertinent
�
Social History:�
Functional Level Premorbidly:�Independent with all activities�
Functional Level Currently:�Independent for bed mobility and transfers. Ambulating 40 feet x 1 with no device and supervision.
�
Tobacco:�Cigarettes and vapes
Alcohol:�Daily half of 1/5 of vodka
Drug use:�Denies�
�
Lives with:�Spouse
24-hour assistance available:�No
Number of floors:�2 split-level
# steps to enter:�1
# steps to second floor: 4�5 steps up and down
Potential First floor set up:�Yes
Driving:�
Occupation:�
�
�
Allergies:�
Allergy/AdvReac Type Severity Reaction Status Date / Time
No Known Allergies Allergy Verified 08/03/24 19:07
�
Review of Systems:�
Constitutional: (x) abNormal _fatigue, poor sleep with pain
Eye: (x) Normal _
Ear/Nose/Throat: (x) Normal _
Respiratory: (x) Normal _
Cardiovascular: (x) Normal _
Gastrointestinal: (x) Normal _
Genitourinary: (x) Normal _
Musculoskeletal: (x) abNormal _back pain radiating down the right leg, slipped disc in back pressing on the nerve requiring surgery
Integumentary: (x) Normal _
Neurologic: (x) abNormal _numbness and tingling down right leg, right leg numb. Weakness right leg
Psychiatric: (x) abNormal _frustrated by. Continuous pain and need to wait so long for surgery to help relieve the pain.
Endocrine: (x) Normal _
Hematologic/Lymphatic: (x) Normal _
Allergic/Immunologic: (x) Normal _
�
Medications:�
Active Current Visit Medication List
Category Date Time Status
0.9% Sodium Chloride [Nss (Preservative Free)] Med 08/04/24 20:00 Active
10 ml IV BID
0.9% Sodium Chloride [Nss (Preservative Free)] Med 08/03/24 23:50 Active
See Protocol IV PRN PRN
Baclofen [Lioresal] Med 08/05/24 14:03 Active
10 mg PO TID PRN
Bupropion(24Hr)Extended Releas [WELLBUTRIN XL (24 hour Med 08/04/24 08:00 Active
extended release)]
150 mg PO DAILY
Duloxetine Delayed Release [Cymbalta Delayed Release] Med 08/04/24 20:00 Active
60 mg PO BID
FOLic ACID [Folvite] Med 08/04/24 08:00 Active
1 mg PO DAILY
FOLic ACID [Folvite] 1 mg Med 08/03/24 23:50 Active
0.9% Sodium Chloride 50 ml [Nss] 50 ml
IV DAILYPRN
Flush (0.9% Sodium Chloride) [Flush (Nss)] Med 08/03/24 23:00 Active
See Dose Instructions IV PER PROTOCOL
Gabapentin [Neurontin] Med 08/04/24 11:24 Active
900 mg PO TID
HydrOXYZINE [Atarax] Med 08/03/24 23:50 Active
50 mg PO TID PRN
Lidocaine [Lidocaine 4% Patch] Med 08/04/24 08:00 Active
2 patch TOPICAL DAILY
Lorazepam [Ativan] Med 08/03/24 23:50 Active
1 mg IV Q1HPRN PRN
Lorazepam [Ativan] Med 08/03/24 23:50 Active
1 mg PO Q2HPRN PRN
Lorazepam [Ativan] Med 08/03/24 23:50 Active
2 mg IV Q1HPRN PRN
Nicotine [Nicoderm Transdermal] Med 08/04/24 08:00 Active
21 mg TRANSDERM DAILY
Ondansetron Injectable [Zofran] Med 08/03/24 23:50 Active
4 mg IV Q6HPRN PRN
Oxycodone [Roxicodone] Med 08/03/24 23:50 Active
10 mg PO Q6H PRN
Pantoprazole [Protonix IV] Med 08/04/24 20:00 Active
40 mg IV BID
Polyethylene Glycol Powder [Miralax] Med 08/03/24 23:50 Active
17 grams PO BID PRN
Prazosin HCl [Minipress] Med 08/04/24 22:00 Active
3 mg PO HS
Remove Patch [Remove Lidocaine Patch] Med 08/04/24 20:00 Active
2 patch REMOVE DAILY@1999
Sennosides [Senokot] Med 08/04/24 08:00 Active
8.6 mg PO BID
Thiamine HCl [Vitamin B1] Med 08/07/24 08:00 Active
100 mg PO BID
Thiamine Injection Med 08/04/24 00:00 Active
200 mg IV Q8
Trazodone [Desyrel] Med 08/04/24 22:00 Active
100 mg PO HS
�
Vitals:�
Temp Pulse Resp BP Pulse Ox
97.6 F 102 19 124/92 94
08/05/24 20:41 08/05/24 22:19 08/05/24 18:12 08/05/24 22:19 08/05/24 13:55
Height 5 ft 10 in
Actual Weight 82.6 kg
Body Mass Index (BMI) 26.1
�
Physical Exam:�
General Appearance/Observation: Well-developed, well-nourished male lying in bed mildly uncomfortable.�
Pain/Comfort Assessment: Low back to the right leg, mostly tingling pain
Mood/Affect: Somewhat flat�
Integumentary/Operative Site:�
�� Pressure Ulcer Evaluation: absent over heels.�
�
Eyes: Conjunctiva/Lids: normal���� Pupils: pupils equal round and reactive to light and Accommodation�
Ears/Nose/Throat: oral mucosa moist,� throat clear.������������ Lips/Teeth/Gums: normal�
Neck: No muscle spasm or tenderness�
Cardiovascular: Heart: regular, no murmur�
Pulses: dorsalis pedis 2+ bilaterally�
Respiratory: Respiratory Effort/Chest Expansion: normal������� Auscultation: Clear to auscultation bilaterally�
Gastrointestinal: abdomen not tender, no distension, normal abdominal bowel sounds
Genitourinary: No Sepulveda�
Rectal Exam: Deferred�
Extremities:�Edema: None�Cyanosis: None�Trophic�changes: None
�
Neurology Exam:
Orientation: Alert, Oriented to self, Time, Place�
Memory: Intact immediately and at 3 minutes�
Repetition: Intact
Comprehension: Intact
Two step command: Intact
Naming: Intact
Cranial Nerves:
�� CNII:�Pupillary light reflex: Intact����Visual Field: Intact
�� CN III, IV, : Extraocular muscles: Intact�
�� CN V:�Facial Sensation�at�Forehead: Intact,�Maxilla: Intact,�Mandible: Intact
�� CN VII:�Facial movement: Symmetric
�� CN VIII:�Hearing: Normal
�� CN IX/X:�Speech & swallow: Normal,�Position of Uvula: Midline
�� CN XI:�Shoulder shrug: Symmetric
�� CN XII:�Tongue protrusion: Midline
Sensory:
�� Light touch: Intact in bilateral upper and lower extremities
�
Reflexes:
�� Biceps: 2+ bilaterally
�� Brachioradialis: 2+ bilaterally
�� Triceps: 2+ bilaterally
�� Patellar: 2+ bilaterally
�� Achilles: 2+ bilaterally
�� Babinski: Down going bilaterally
�� Clonus: None
�� Bradley: Negative bilaterally�
Cerebellar: Dysmetria/Ataxia: None�
Musculoskeletal: Motor: (Manual muscle scale 0-5)�
Muscle SA EF WE EE FF FA HF KE DF EHL PF
Right� 5 5 5 5 5 5 3 3 3 3 3
Left 5 5 5 5 5 5 5 5 5 5 5
�
Tone: Normal in all extremities�
Range of Motion: Passively within normal limits in all extremities�
�
Lab Results
Laboratory Data
08/05/24 20:00
08/05/24 04:41
PT 14.0 Sec (11.4-14.6) 08/05/24 04:41
INR 1.03 08/05/24 04:41
APTT 26.6 Sec (23.4-35.0) 08/04/24 00:25
Total Bilirubin 1.3 mg/dl (0.2-1.3) 08/05/24 04:41
GGT 716 U/L (15-73) H 08/04/24 00:25
AST 76 U/L (17-59) H 08/05/24 04:41
ALT 52 U/L (0-50) H 08/05/24 04:41
Alkaline Phosphatase 104 U/L (38-126) 08/05/24 04:41
Total Protein 5.0 g/dl (6.3-8.2) L 08/05/24 04:41
Albumin 2.9 g/dl (3.5-5.0) L 08/05/24 04:41
�
Diagnostic Results:�as per HPI�
�
Assessment
39-year-old male with past medical history of PTS D, depression and alcohol dependency with 6-month history of back pain [facility] to [facility]ging disc impinging upon the nerve but needs to be alcohol free for 2 months
before surgery can happen presents with worsening pain and alcohol withdrawal.
�
Plan�
PM&R�PT/OT to increase independence with ADLs, improve balance, coordination, endurance, strength, mobility, community reintegration, decreased burden of care on others and family education.�
Reported history of right disc extrusion at L5-S1 causing severe narrowing of the right lateral recess: Reports plan for surgical intervention at the [place] but must be off of alcohol for 2 months before that can happen. He tried 2 epidurals without
benefit. He has taken up to 1200 mg of gabapentin currently at 900 mg 3 times daily. Could consider 1200 mg 3 times daily again, he had reportedly been on that at the [facility] per his psychiatrist.
Has reproducible muscle spasm in the right buttocks and hip: Suggest heat on a routine basis, massage, just started on baclofen 10 mg 4 times a day. Would suggest decreasing to 3 times a day with liver concerns with alcohol use. Monitor for
sedation. Titrate as able. Physical therapy. Kareem-hickey like cream to to be placed over right buttocks and hip avoiding perianal and inguinal areas.
-Consider spine consult here to see if they would do the procedure sooner given patient's significant level of pain
Anemia: Hemoglobin dropped from 15.7-10.8 and then 10.6. Hemoglobin being monitored closely.
FEN:
-Hyponatremia and hypokalemia being addressed
PTSD/depression: His home psychiatrist was already consulted.� Monitor mood, bupropion, duloxetine, hydroxyzine, prazosin for PTSD, trazodone for sleep.�
Skin: monitor for pressure sores/rashes/lesions.�
Chronic back pain: Takes oxycodone, gabapentin, lidocaine patch. Started on baclofen.�
Bowel: Colace and Senna, PRN bisacodyl.�
Bladder: Time void, PVRs, PRN straight cath.�
Alcohol Abuse: Alcohol cessation education, offering of outpatient alcohol abuse program�
Tobacco Abuse: Smoking cessation counseling. Need to find out why smoking whether it is nicotine withdrawal, habit, or oral fixation.� Has nicotine patch
GI Prophylaxis: Pantoprazole�
DVT Prophylaxis: Mechanical.�
Pulmonary: Incentive spirometry�
Safety: Continue to reinforce assistance with all transfers.�
Code Status:� Full code
Dispo�(date/plan/equipment needs): Home with family care.� Social history reviewed.�
Functional and Medical Goals:�Modified Independent with ADL�s, ambulation, transfers�
Discharge Destination:�Home with home care versus outpatient therapy.
A total of 60 minutes were spent with the patient preparing for the evaluation, obtaining history, performing examination and evaluation, counseling, data review, case management, care coordination, order filler, and EMR documentation. Reviewed
interventions as suggested with Dr. Charles.
�
Thank you for allowing me to care for your patient. Please contact me with any questions or concerns.
[2024-08-05] MEDS: KCL 40 MEQ PO (12:33)
[2024-08-05] MEDS: MAGNESIUM SULFATE 50 IV (12:34)
[2024-08-05 12:52] LABS: Phosphorus 3.1 mg/dl (2.5-4.5)
--- NOTE | 2024-08-05 13:56 | PTCARENOTE ---
Pt presents as assessed. Aox3. MSAS per protocol. VSS. Medicated with PRN Alice for low back pain, see MAR. OOB to chair with PT. Able to make needs known, call gibbs within reach.
[2024-08-05 15:05] LABS: Hemoglobin 11.5 g/dL (13.0-18.0)
[2024-08-05] MEDS: DESYREL 100 MG PO (22:19)
[2024-08-05] MEDS: MINIPRESS 3 MG PO (22:19)
[2024-08-05] MEDS: ATIVAN 1 MG IV (23:51)
[2024-08-06] VITALS (12 sets, daily range): BP systolic 100–148; BP diastolic 65–92
--- NOTE | 2024-08-06 00:25 | PTCARENOTE ---
Patient aao x3 since start of shift, able to make needs known. Patient c/o chronic back pain earlier this shift. PRN Roxicodone provided with moderate results. PRN Baclofen provided with positive results later in shift. Patient c/o anxiety
increasing throughout shift. MSAS 4, 7, then 8 at 00:00. PRN Ativan 1mg IV provided per MSAS protocol. Patient assisted x1 to transfer from chair to bed. NSR to ST on the monitor, positive radial and pedal pulses bl. Lungs CTA throughout. BS active
x4. Will continue to monitor patient closely. Call gibbs within reach.
[2024-08-06] MEDS: ROXICODONE 10 MG PO ×2 (03:32→18:27)
[2024-08-06 04:01] LABS: Hematocrit 28.6 % (39.0-52.0); Mean Corpuscular Hgb 33.7 pg (27.0-31.0); Mean Corpuscular Volume 96.3 fL (80.0-94.0); Mean Platelet Volume 10.4 fL (7.4-10.4); Platelet Count 159 10^3/uL (130-400); Red Blood Cell Count 2.97 10^6/uL (4.70-6.10); Red Cell Dist. Width 14.1 % (11.5-14.5); White Blood Cell Count 5.2 10^3/uL (4.8-10.8)
[2024-08-06 04:27] LABS: ALT (SGPT) 46 U/L (0-50); AST (SGOT) 67 U/L (17-59); Alkaline Phosphatase 98 U/L (38-126); Blood Urea Nitrogen 9 mg/dl (9-20); Calcium 8.5 mg/dl (8.4-10.2); Carbon Dioxide 27 mmol/L (22-30); Chloride 102 mmol/L (98-107); Estimated Creatinine Clearance > 125 ml/min; Glucose 135 mg/dl (70-99); Potassium 3.4 mmol/L (3.5-5.1); Sodium 133 mmol/L (135-145); Total Bilirubin 0.8 mg/dl (0.2-1.3); Total Protein 5.1 g/dl (6.3-8.2); eGFR > 60.00
[2024-08-06] MEDS: KCL 40 MEQ PO (06:21)
--- NOTE | 2024-08-06 08:12 | W.PN.HOSP.TC ---
Today's Communication/Plan
-
possible DC later today if everything set up for outpatient treatment versus tomorrow morning
increase Gabapentin
Baclofen TID scheduled
Assessment / Plan
Assessment / Plan
Mr. Augustin Loredo is a 39 yo man with hx PTSD, depression, chronic pain (sciatica) and alcohol use presents to the ER with lower back pain and symptoms of withdrawal. He was recently admitted to the [facility] with withdrawal and tylenol intoxication.
Patient is offered spinal surgery but because of pain he continues to drink. He cannot undergo surgery until a period of sobriety.
Alcohol Abuse Disorder
Alcohol Withdrawal
-monitor on telemetry
-OK to stop IVF
-thiamine/folate
-MSAS
-improving; Ativan given yesterday evening per patient post very tense phone call
L5 S1 disc Herniation
Sciatia
-Gabapentin 900 TID --> increase to 1200mg TID (this was the dose prescribed after last admission to [facility])
-trial of Baclofen- patient states it helps - make scheduled TID
-Lidocaine patch
-oxycodone PRN
-appreciate PT and Physiatry consults
Reported use of excessive tylenol pre last admission
-tylenol level < 10
Transaminitis
-normal T. Bili and INR
-2/2 alcohol use
Gastritis
-IV PPI daily
PTSD
Depression
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
-patient's psychiatrist aware of admission
DVT PPx Hg stable, will start lovenox subQ
FULL CODE
51 minutes spent on patient care
Anticipated Discharge: Within 24 hours
Subjective/Interval History
-
Date of Service: August 06, 2024
states he received Ativan yesterday evening because he was very anxious after a phone call with
Objective Data
-
Labs:
Laboratory Results
08/06/24
03:44
WBC 5.2
Hgb 10.0 L
Hct 28.6 L
Plt Count 159
Sodium 133 L
Potassium 3.4 L
Chloride 102
Carbon Dioxide 27
BUN 9
Creatinine 0.7
Glucose 135 H
Calcium 8.5
Total Bilirubin 0.8
AST 67 H
ALT 46
Alkaline Phosphatase 98
Vital Signs:
Vital Signs
Temp Pulse Resp BP Pulse Ox
98.6 F 90 13 101/65 92
08/06/24 03:27 08/06/24 06:00 08/06/24 06:00 08/06/24 06:00 08/06/24 06:00
I&O
08/05/24 08/06/24 08/07/24
06:59 06:59 06:59
Intake Total 1340 / 1340 240 / 240
Output Total 425 / 425
Balance 1340 / 1340 -185 / -185
Review of Systems
-
History Source: Patient
All other systems: Reviewed and negative
Physical Exam
-
General: No Apparent Distress
HEENT: PERRLA
Respiratory: Clear to Auscultation; Negative Wheezes
Cardiac: Regular Rhythm and S1/S2
GI: Soft and Nontender
Musculoskeletal: No Edema and Other (+ straight leg test right )
Skin: Warm and Dry; Negative Rash
Neuro: Awake, Alert and AO x 3
Psych: Calm
Data Reviewed
-
Diagnostic Radiology: Report Reviewed by me
Labs: Labs Reviewed by me
[2024-08-06 08:34] LABS: Magnesium 1.7 mg/dl (1.6-2.3)
[2024-08-06] MEDS: FOLVITE 1 MG PO (08:51)
[2024-08-06] MEDS: WELLBUTRIN XL (24 hour extended release) 150 MG PO (08:51)
[2024-08-06] MEDS: NEURONTIN 1200 MG PO (08:51)
[2024-08-06] MEDS: THIAMINE INJECTION 200 MG IV ×2 (08:51→15:31)
[2024-08-06] MEDS: CYMBALTA DELAYED RELEASE 60 MG PO ×2 (08:51→21:33)
[2024-08-06] MEDS: LIORESAL 10 MG PO ×3 (08:51→21:33)
[2024-08-06] MEDS: SENOKOT PO (08:52)
[2024-08-06] MEDS: LIDOCAINE 4% PATCH TOPICAL (08:52)
[2024-08-06] MEDS: NSS (PRESERVATIVE FREE) 10 ML IV ×2 (08:53→21:34)
[2024-08-06] MEDS: NICODERM TRANSDERMAL 21 MG TRANSDERM (08:53)
[2024-08-06] MEDS: PROTONIX IV 40 MG IV ×2 (08:53→21:35)
[2024-08-06] MEDS: NEURONTIN PO (08:55)
[2024-08-06] MEDS: ATIVAN 1 MG PO (09:04)
--- NOTE | 2024-08-06 09:54 | CM ---
Addendum entered by Yana Mcmahan RN 08/06/24 15:47:
Address for IOP: [address] [address]
Address for IOP and Phone # to [facility] provided to patient in writing.
Addendum entered by Yana Mcmahan RN 08/06/24 15:31:
PT Eval; no needs. Physiatry Consult; Hx PTSD, recommend Home with home care versus outpatient therapy.
Received callback from DOLLY Brantley; she received a phone call from the [facility]; the patient is already setup with the [facility] program at the [facility], and needs to return there on Wednesday 08/09 9am. The [facility] requests we sent the d/c summary & med
list to Yong Najera & Daniel at fax [phone].
Per Karon, [facility] that patient has an appointment with Psych Dr Sanchez on 08/13 at 10:30am.
Spoke with patient and and provided above info by phone and written appt info given to patient. Patient will arrange an Uber for Friday morning to get to the IOP at 9am.
Update provided to Dr Charles.
Plan home with [facility] resuming 08/09 with [facility]patient [facility] Appt [facility]/13.
Addendum entered by Yana Mcmahan RN 08/06/24 12:09:
Spoke with DOLLY Puckett; Karon called and Italo called the [facility] line today and both left messages with the referral for IOP and requested callback.
Spoke with patient and Humaira; both are aware that DOLLY left 2 messages for the [facility] to [facility] program. Provided [facility] contact info to patient's ([phone]) who will follow up.
Plan home with referral to [facility] program.
Original Note:
Patient with Dx Alcohol Abuse Disorder, Alcohol Withdrawal, L5 S1 disc Herniation, Sciatica. Room air. Receiving IV Ativan prn. MSAS per nursing.
Spoke with DOLLY Michael yesterday; he met with patient yesterday and offered Inpatient/Outpatient program for [facility], and patient declined saying he wants to set up [facility]---> Dr Charles notified today.
Request from Dr Charles; patient's Psychiatrist [facility] the [place] provided [facility] Contact, [facility] [phone]. Request offer again to patient to setup [facility]---> LUCIO or DOLLY will speak with patient.
Spoke with DOLLY Puckett; Karon will speak with patient today re; setting up [facility] through the [facility].
Plan follow up with DOLLY.
[2024-08-06] MEDS: NEURONTIN 900 MG PO ×2 (15:31→21:32)
--- NOTE | 2024-08-06 16:13 | PTCARENOTE ---
Patient AOx3. Patient lethargic, but arouses to voice. MSAS completed per order and PRN ativan administered per MSAS order. Patient requiring 2L NC when sleeping due to SpO2 in low 80's, but on RA when awake. VSS. NSR-sinus tach on monitor. Assist
x1 when OOB. Loose stools during shift. Patient tolerating regular diet. Call gibbs within reach, bed in lowest position, and bed of wheels locked.
[2024-08-06] MEDS: LOVENOX 40 MG SC (17:06)
--- NOTE | 2024-08-06 18:08 | PTCARENOTE ---
Verbal report given to 4W LAVONNE Medina. Patient transferred via wheelchair by RN. Patient belongings transferred with patient.
--- NOTE | 2024-08-06 18:14 | PTCARENOTE ---
patient arrived to unit. VSS. OX4. Patient c/o pain 9/10 to lower back. PRN oxycodone given to patient. Call gibbs in reach. safety maintained.
[2024-08-06] MEDS: MINIPRESS 3 MG PO (21:31)
[2024-08-06] MEDS: ATARAX 50 MG PO (21:33)
[2024-08-06] MEDS: DESYREL 100 MG PO (21:33)
[2024-08-06] MEDS: SENOKOT 8.6 MG PO (21:33)
[2024-08-07] MEDS: ROXICODONE 10 MG PO ×4 (01:40→22:23)
[2024-08-07 03:16] VITALS: BP 109/75
[2024-08-07 07:26] VITALS: BP 119/74
[2024-08-07] MEDS: VITAMIN B1 100 MG PO ×2 (08:06→22:18)
[2024-08-07] MEDS: SENOKOT 8.6 MG PO ×2 (08:06→22:19)
[2024-08-07] MEDS: CYMBALTA DELAYED RELEASE 60 MG PO ×2 (08:06→22:18)
[2024-08-07] MEDS: NEURONTIN 900 MG PO (08:07)
[2024-08-07] MEDS: FOLVITE 1 MG PO (08:07)
[2024-08-07] MEDS: WELLBUTRIN XL (24 hour extended release) 150 MG PO (08:07)
[2024-08-07] MEDS: LIORESAL 10 MG PO ×3 (08:08→22:18)
[2024-08-07] MEDS: NSS (PRESERVATIVE FREE) 10 ML IV ×2 (08:08→22:19)
[2024-08-07] MEDS: PROTONIX IV 40 MG IV ×2 (08:08→22:19)
[2024-08-07] MEDS: NICODERM TRANSDERMAL 21 MG TRANSDERM (08:09)
[2024-08-07] MEDS: LIDOCAINE 4% PATCH TOPICAL (08:11)
[2024-08-07 11:33] VITALS: BP 119/80
--- NOTE | 2024-08-07 13:38 | W.PN.HOSP.TC ---
Today's Communication/Plan
-
expect discharge tomorrow after monitoring on higher dose Gabapentin
Assessment / Plan
Assessment / Plan
Mr. Augustin Loredo is a 39 yo man with hx PTSD, depression, chronic pain (sciatica) and alcohol use presents to the ER with lower back pain and symptoms of withdrawal. He was recently admitted to the [facility] with withdrawal and tylenol intoxication.
Patient is offered spinal surgery but because of pain he continues to drink. He cannot undergo surgery until a period of sobriety.
Alcohol Abuse Disorder
Alcohol Withdrawal
-monitor on telemetry
-OK to stop IVF
-thiamine/folate
-MSAS
-withdrawal now resolved; has not required Ativan in over 24 hours
L5 S1 disc Herniation
Sciatia
-Gabapentin - patient was given 1200mg yest with Ativan and became very sedated. Now that he is through withdrawal will increase again to 1200 for continued pain.
-trial of Baclofen- patient states it helps - make scheduled TID
-Lidocaine patch
-oxycodone PRN
-appreciate PT and Physiatry consults
Reported use of excessive tylenol pre last admission
-tylenol level < 10
Transaminitis
-normal T. Bili and INR
-2/2 alcohol use
Gastritis
-IV PPI daily
PTSD
Depression
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
-patient's psychiatrist aware of admission
DVT PPx Hg stable, will start lovenox subQ
FULL CODE
Anticipated Discharge: Within 24 hours
Subjective/Interval History
-
Date of Service: August 07, 2024
continues to have burning pain down right leg
Objective Data
-
Vital Signs:
Vital Signs
Temp Pulse Resp BP Pulse Ox
98.5 F 81 15 119/80 97
03/22/25 11:33 08/07/24 11:33 08/07/24 11:33 08/07/24 11:33 08/07/24 11:33
I&O
08/06/24 08/07/24 08/08/24
06:59 06:59 06:59
Intake Total 240 / 240 720 / 720
Output Total 425 / 425
Balance -185 / -185 720 / 720
Review of Systems
-
History Source: Patient
All other systems: Reviewed and negative
Physical Exam
-
General: No Apparent Distress
HEENT: PERRLA
Respiratory: Clear to Auscultation; Negative Wheezes
Cardiac: Regular Rhythm and S1/S2
GI: Soft and Nontender
Musculoskeletal: No Edema and Other (+ straight leg test right )
Skin: Warm and Dry; Negative Rash
Neuro: Awake, Alert and AO x 3
Psych: Calm
Data Reviewed
-
Diagnostic Radiology: Report Reviewed by me
Labs: Labs Reviewed by me
[2024-08-07 15:12] VITALS: BP 135/83
[2024-08-07] MEDS: NEURONTIN 1200 MG PO ×2 (16:07→22:18)
[2024-08-07] MEDS: LOVENOX SC (16:15)
[2024-08-07] MEDS: DESYREL 100 MG PO (22:18)
[2024-08-07] MEDS: MINIPRESS 3 MG PO (22:19)
[2024-08-07] MEDS: ATARAX 50 MG PO (22:23)
[2024-08-07 22:35] VITALS: BP 148/96
[2024-08-08 07:40] VITALS: BP 122/82
[2024-08-08] MEDS: FOLVITE 1 MG PO (09:06)
[2024-08-08] MEDS: CYMBALTA DELAYED RELEASE 60 MG PO (09:06)
[2024-08-08] MEDS: LIDOCAINE 4% PATCH TOPICAL (09:07)
[2024-08-08] MEDS: NEURONTIN 1200 MG PO (09:07)
[2024-08-08] MEDS: LIORESAL 10 MG PO (09:07)
[2024-08-08] MEDS: NICODERM TRANSDERMAL 21 MG TRANSDERM (09:07)
[2024-08-08] MEDS: PROTONIX IV 40 MG IV (09:08)
[2024-08-08] MEDS: NSS (PRESERVATIVE FREE) 10 ML IV (09:08)
[2024-08-08] MEDS: VITAMIN B1 100 MG PO (09:08)
[2024-08-08] MEDS: WELLBUTRIN XL (24 hour extended release) 150 MG PO (09:08)
[2024-08-08] MEDS: SENOKOT 8.6 MG PO (09:08)
[2024-08-08] MEDS: ROXICODONE 10 MG PO (09:19)
--- NOTE | 2024-08-08 11:48 | W.PN.HOSP.TC ---
Today's Communication/Plan
-
OK for DC today
Assessment / Plan
Assessment / Plan
Mr. Augustin Loredo is a 39 yo man with hx PTSD, depression, chronic pain (sciatica) and alcohol use presents to the ER with lower back pain and symptoms of withdrawal. He was recently admitted to the [facility] with withdrawal and tylenol intoxication.
Patient is offered spinal surgery but because of pain he continues to drink. He cannot undergo surgery until a period of sobriety.
Alcohol Abuse Disorder
Alcohol Withdrawal
-monitor on telemetry
-OK to stop IVF
-thiamine/folate
-MSAS
-withdrawal now resolved; has not required Ativan in over 24 hours
L5 S1 disc Herniation
Sciatia
-Gabapentin - tolerating 1200mg dosing
-trial of Baclofen- patient states it helps - make scheduled TID
-Lidocaine patch
-oxycodone PRN
-appreciate PT and Physiatry consults appreciated
Reported use of excessive tylenol pre last admission
-tylenol level < 10
Transaminitis
-normal T. Bili and INR
-2/2 alcohol use
Gastritis
-IV PPI daily
PTSD
Depression
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
-patient's psychiatrist aware of admission
DVT PPx lovenox subQ
FULL CODE
Anticipated Discharge: Today
Subjective/Interval History
-
Date of Service: August 08, 2024
feeling good, feels ready to go home today
Objective Data
-
Vital Signs:
Vital Signs
Temp Pulse Resp BP Pulse Ox
98.1 F 83 15 122/82 97
08/08/24 07:40 08/08/24 07:40 08/08/24 07:40 08/08/24 07:40 08/08/24 09:00
I&O
08/07/24 08/08/24 08/09/24
06:59 06:59 06:59
Intake Total 720 / 720 480 / 480
Balance 720 / 720 480 / 480
Review of Systems
-
History Source: Patient
All other systems: Reviewed and negative
Physical Exam
-
General: No Apparent Distress
HEENT: PERRLA
Respiratory: Clear to Auscultation; Negative Wheezes
Cardiac: Regular Rhythm and S1/S2
GI: Soft and Nontender
Musculoskeletal: No Edema and Other (+ straight leg test right )
Skin: Warm and Dry; Negative Rash
Neuro: Awake, Alert and AO x 3
Psych: Calm
Data Reviewed
-
Diagnostic Radiology: Report Reviewed by me
Labs: Labs Reviewed by me
--- NOTE | 2024-08-08 12:03 | W.DS.TRANS ---
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
-
Discharge Instructions:
Discharge Diagnosis/Procedures Alcohol Withdrawal; Chronic Lower back pain and
radiculopathy
Diet Regular
Activity As tolerated
Driving Restrictions Not until seen by your Dr
Bathing Restrictions None
Instructions:
Stand-Alone Forms:
Changes to Home Medications: Yes
Discharge Medications:
DC Medications w/original date entered in [employer]
bupropion HCl 150 mg 24 hr tablet, extended release 150 mg PO DAILY Mental Health/Anxiety 08/03/24
hydroxyzine HCl 50 mg tablet 50 mg PO TID PRN anxiety 08/03/24
lidocaine 5 % topical patch 2 patch topical DAILY Pain 08/03/24
naloxone 8 mg/actuation nasal spray 1 spray intranasal Q3M PRN opioid overdose 08/03/24
nicotine 21 mg/24 hr daily transdermal patch 1 patch transdermal DAILY Smoking Cessation 08/03/24
polyethylene glycol 3350 17 gram oral powder packet (Miralax) 17 g PO BID PRN constipation 08/03/24
prazosin 1 mg capsule 3 mg PO HS Urinary Issue 08/03/24
trazodone 100 mg tablet 100 mg PO HS Sleep 08/03/24
baclofen 10 mg tablet 10 mg PO TID #90 tabs 08/08/24
duloxetine 30 mg capsule,delayed release 60 mg (2 x 30 mg) PO BID Mental Health/Anxiety #0 caps 08/08/24
folic acid 1 mg tablet 1 mg PO DAILY #30 tabs 08/08/24
gabapentin 600 mg tablet 1,200 mg (2 x 600 mg) PO TID Pain #160 tabs 08/08/24
oxycodone 5 mg tablet 10 mg (2 x 5 mg) PO Q6H PRN severe pain #10 tabs 08/08/24
pantoprazole 40 mg tablet,delayed release 40 mg PO DAILY #30 tabs 08/08/24
thiamine mononitrate (vit B1) 100 mg tablet 100 mg PO DAILY #30 tabs 08/08/24
Home Medication Changes
You are newly started on Baclofen 10mg to take once every 8 hours
Take Gabapentin 1200mg once every 8 hours
Continue Cymbalta 60mg twice a day
You are prescribed Protonix to help treat Gastritis
You are prescribed vitamin supplementation with Thiamine/Folate
You are prescribed 10 pills of Oxycodone 5mg. It is very important you do not mix any of these medications with alcohol as it can results in excessive sedation and even respiratory depression. Additionally, it will hold you back from definitive
treatment for your back.
Please go to IOP tomorrow as scheduled at 9AM
Pending Results: No
--- NOTE | 2024-08-08 12:25 | CM ---
Addendum entered by Vanessa Dee 08/08/24 12:40:
will transport home
Original Note:
Plan: Discharge to home today
Per [facility],
Patient is setup with the [facility]; needs to return there on Friday08/09/24 @ 0900
Patient also has an appointment with Psych, Dr. Sanchez on 08/13/24 @ 1030
At discharge, send Discharge Summary and Medication List to Drs. Najera & Daniel at the [facility]
--- NOTE | 2024-08-08 14:32 | W.DCSUMMARY ---
Discharge Summary
Discharge Data
Date of Admission: 08/03/24
Date of Discharge: 08/08/24
-
Pending Results: No
Hospital Course
Discharging Physician : Dr. Alisa Charles
Disposition : Home
Principal Discharge diagnosis : Alcohol Withdrawal, Chronic back pain and Lumbar Radiculopathy
Hospital Course :
Mr. Augustin Loredo is a 39 yo man with hx PTSD, depression, chronic pain (lumbar radiculopathy) and alcohol abuse presents to the ER with lower back pain and symptoms of withdrawal. He was recently admitted to the [facility] with withdrawal and tylenol
intoxication. Patient is offered spinal surgery but because of pain he continues to drink and he cannot undergo surgery until a period of sobriety.
Triage vitals significant for tachycardia. Labs with WBC 10.2, Cr 0.7, AST 91, ALT 73, T. Bili 1.1 and Alk Phos 137. He was admitted to medicine for treatment of Alcohol Withdrawal and further pain management.
Regarding withdrawal, he received intermittent IV Ativan and has not required this in over 48 hours pre-discharge. He was educated on importance of cessation for his liver health and to be a candidate for surgery. He reports understanding and
plans to attend his IOP appointment tomorrow.
Regarding lower back pain, his Gabapentin was increased to his prior dosing of 1200mg 3/xday; this is refilled on discharge. He was newly started on Baclofen and reports relief. His Cymbalta is continued at BID dosing. He is prescribed 10 pills
of Oxycodone at discharge.
He feels ready to go home today and reports willingness to stay sober.
He has follow up with his Psychiatrist next week and IOP appointment tomorrow.
Time spent on discharge was 35 minutes.
Important imaging findings :
Procedure findings :
Discharge Plan
-
Patient Disposition: Home (Routine Discharge)
Discharge Diagnosis/Procedures: Alcohol Withdrawal; Chronic Lower back pain and radiculopathy
Diet: Regular
Activity: As tolerated
Driving Restrictions: Not until seen by your Dr
Bathing Restrictions: None
Referrals:
NONE,* [Family Provider] - in less than 1 week
Additional Discharge Medication Instructions: You are newly started on Baclofen 10mg to take once every 8 hours. This helps with muscle spasm. (Do NOT take with Flexeril and do not mix with Alcohol)
Take Gabapentin 1200mg once every 8 hours
Continue Cymbalta 60mg twice a day
You are prescribed Protonix to help treat Gastritis
You are prescribed vitamin supplementation with Thiamine/Folate
You are prescribed 10 pills of Oxycodone 5mg. It is very important you do not mix any of these medications with alcohol as it can results in excessive sedation and even respiratory depression. Additionally, it will hold you back from definitive
treatment for your back.
Please go to IOP tomorrow as scheduled at 9AM
Prescriptions:
New
baclofen 10 mg Tablet
10 mg PO TID Qty: 90 0RF
pantoprazole 40 mg Tablet,Delayed Release (Dr/Ec)
40 mg PO DAILY Qty: 30 0RF
folic acid 1 mg Tablet
1 mg PO DAILY Qty: 30 0RF
thiamine mononitrate (vit B1) 100 mg Tablet
100 mg PO DAILY Qty: 30 0RF
Continued
polyethylene glycol 3350 [Miralax] 17 gram Powder In Packet
17 g PO BID PRN (Reason: constipation)
prazosin 1 mg Capsule
3 mg PO HS
hydroxyzine HCl 50 mg Tablet
50 mg PO TID PRN (Reason: anxiety )
trazodone 100 mg Tablet
100 mg PO HS
lidocaine 5 % Adhesive Patch,Medicated
2 patch TOPICAL DAILY
nicotine 21 mg/24 hr Patch 24 Hour
1 patch TRANSDERMAL DAILY
bupropion HCl 150 mg Tablet Extended Release 24 Hr
150 mg PO DAILY
naloxone 8 mg/actuation [place],Non-Aerosol
1 spray INTRANASAL Q3M PRN (Reason: opioid overdose )
oxycodone 5 mg Tablet
10 mg PO Q6H PRN (Reason: severe pain ) Qty: 10 0RF
Changed
gabapentin 600 mg Tablet
1,200 mg PO TID Qty: 160 0RF
duloxetine 30 mg Capsule,Delayed Release(Dr/Ec)
60 mg PO BID Qty: 0 0RF
Discontinued
sennosides 8.6 mg Tablet
8.6 mg PO BID
acetaminophen 500 mg Tablet
1,000 mg PO Q8H PRN (Reason: pain)
Discharge Orders:
Discharge Patient (As Directed); Ordered 08/08/24
Ordered By: Alisa Charles
Discharge Date and Time
Discharge Date/Time: 08/08/24 14:03
Print Language: SERBIAN
== END 2024-08-08 14:03 | disposition home or self-care (01) | DRG 897 ==
LOC: 4 WEST ACU 22:42
PROVIDERS: Nurse Practitioner Family; ADMITTING PHYSICIAN Internal Medicine; ATTENDING PHYSICIAN Student in an Organized Health Care Education/Training Program; CONSULT PHYSICIAN Physical Medicine & Rehabilitation; EMERGENCY PHYSICIAN Emergency Medicine
DX: F10.239 Alcohol dependence with withdrawal, unspecified (principal); E87.1 Hypo-osmolality and hyponatremia; F43.10 Post-traumatic stress disorder, unspecified; F17.213 Nicotine dependence, cigarettes, with withdrawal; F32.A Depression, unspecified; K29.20 Alcoholic gastritis without bleeding; G89.29 Other chronic pain; M54.50 Low back pain, unspecified; M54.16 Radiculopathy, lumbar region; M54.10 Radiculopathy, site unspecified; D64.9 Anemia, unspecified; E87.6 Hypokalemia; Y90.8 Blood alcohol level of 240 mg/100 ml or more; Z71.6 Tobacco abuse counseling; K70.10 Alcoholic hepatitis without ascites; F10.229 Alcohol dependence with intoxication, unspecified
CPT/HCPCS: 80053; 80143; 82010; 82077; 82728; 82977; 83540; 83550; 83690; 83735; 84100; 85018; 85025; 85027; 85610; 85730; 86850; 86900; 86901; 93005; 96361; 96374; 96375; 97162; 99285; 99406